=== PATIENT | male | born 1955 | race Two or more races ===

== ENCOUNTER 2019-03-04 10:54 | Emergency (ER) | payer MEDICAID ==
[~2019-03-04] VITALS: Ht 182.9 cm; Wt 77.1 kg
--- NOTE | 2019-03-04 11:09 | NUR ---
ED Nurse Note: Pt came into the ER w/ complaints of headache x 4 days ago. Pt is rating the pain a 6/10. Non radiating. Pt went to Dr. Dixon's office and sent him here for a CT scan. Pt is A + O x4. Ambulatory. Skin warm to touch.
[2019-03-04 11:11] VITALS: BP 119/76
[2019-03-04] MEDS ORDERED: Ketorolac 30mg Inj IV ONE (11:30)
[2019-03-04] MEDS ORDERED: Gadavist 7.5mMol/7.5ml vial IV PRN (11:30)
--- NOTE | 2019-03-04 11:34 | Emergency Room Report ---
History of Present Illness General Chief Complaint: Headache Source: Patient Present Illness HPI Patient was referred from his primary physician's office across the street to have a CT scan of the head because of a headache. The headache has been present for 4 days. He feels it mainly in the left part of his neck radiating up into his head - rated 6/10. He also feels dizziness. There is no nausea or vomiting associated with that. He's been taking a baby aspirin every day since it happened. He does occasionally smoke cigarettes and also drinks alcohol on occasion. 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 The patient also complains about some numbness down his left leg. He feels this is related to lower back pain. No other blood thinners, oncologic problems, arm or leg weakness, change in vision. No HTN, DM. No fam h/o strokes. 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 Nursing Documentation: PMH: Agreed; PSxH: Agreed Nursing Documentation-PMH Past Medical History: No History, Except For Hx Hypertension: Yes Hx Gastrointestinal Problems: Yes - Gastric Ulcer Review of Systems All Other Systems: negative except mentioned in HPI Physical Exam Vital Signs Date Time Temp Pulse Resp B/P (MAP) Pulse Ox O2 Delivery O2 Flow Rate FiO2 03/04/19 11:02 97.9 78 21 104/71 98 Room Air Sp02 EP Interpretation: reviewed, normal General Appearance: well appearing, no apparent distress, GCS 15 Head: normocephalic, atraumatic Eyes: bilateral eye normal inspection, bilateral eye PERRL, bilateral eye EOMI ENT: moist mucus membranes, other - lifts L lip speaking more than R but smiles symmetrically Neck: supple, tender - L occipital area Respiratory: chest non-tender, lungs clear, normal breath sounds Cardiovascular #1: regular rate, rhythm Cardiovascular #2: 2+ radial (R) Gastrointestinal: normal inspection, normal bowel sounds, non tender, no mass, non-distended Genitourinary: no CVA tenderness Musculoskeletal: gait/station normal, normal range of motion, other - min lumbar tenderness Neurologic: alert, oriented x3, operations lieutenant III-XII nml as tested, motor strength/tone normal, DTRs symmetric, sensory intact, cerebellar normal, normal gait, speech normal, no Babinski Psychiatric: mood/affect normal Skin: normal inspection, warm/dry Medical Decision Making Diagnostic Impression: Primary Impression: Headache Qualified Codes: G44.89 - Other headache syndrome Additional Impressions: Posterior fossa infarcts Cerebral infarct Qualified Codes: 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 Differential includes tension, migraine, referred pain from neck, intracerebral pathology amongst others. Evaluation will be with EKG and labs. As our CT scanner is nonfunctional an MRI is ordered. The patient will receive Toradol 15 mg IV. EKG without injury. Labs unremarkable. MRI called with cerebellar/occipital lobe infarcts - emboli. Called [facility]. Accepted by Dr. Lott. (Consideration for d/c, but wants to work up as posterior circulation problem.) Aspirin given. Discussed findings with patient. Initially reluctant to be transferred then agreed. Laboratory Tests Test 03/04/19 11:35 White Blood Count 6.5 K/UL (4.8-10.8) Red Blood Count 4.53 M/UL (4.70-6.10) L Hemoglobin 14.5 G/DL (14.2-18.0) Hematocrit 42.0 % (42.0-52.0) Mean Corpuscular Volume 93 FL (80-99) Mean Corpuscular Hemoglobin 31.9 PG (27.0-31.0) H Mean Corpuscular Hemoglobin Concent 34.4 G/DL (32.0-36.0) Red Cell Distribution Width 10.9 % (11.6-14.8) L Platelet Count 280 K/UL (150-450) Mean Platelet Volume 6.0 FL (6.5-10.1) L Neutrophils (%) (Auto) 66.4 % (45.0-75.0) Lymphocytes (%) (Auto) 21.3 % (20.0-45.0) Monocytes (%) (Auto) 9.3 % (1.0-10.0) Eosinophils (%) (Auto) 2.3 % (0.0-3.0) Basophils (%) (Auto) 0.7 % (0.0-2.0) Prothrombin Time 10.6 SEC (9.30-11.50) Prothrombin Time INR 1.0 (0.9-1.1) PTT 25 SEC (23-33) Sodium Level 138 MMOL/L (136-145) Potassium Level 3.8 MMOL/L (3.5-5.1) Chloride Level 103 MMOL/L (98-107) Carbon Dioxide Level 26 MMOL/L (21-32) Anion Gap 10 mmol/L (5-15) Blood Urea Nitrogen 12 mg/dL (7-18) Creatinine 0.8 MG/DL (0.55-1.30) Estimate Glomerular Filtration Rate > 60 mL/min (>60) Glucose Level 88 MG/DL (74-106) Calcium Level 9.2 MG/DL (8.5-10.1) Total Bilirubin 0.6 MG/DL (0.2-1.0) Aspartate Amino Transferase (AST) 22 U/L (15-37) Alanine Aminotransferase (ALT) 32 U/L (12-78) Alkaline Phosphatase 70 U/L (46-116) Total Creatine Kinase 107 U/L (26-308) Troponin I 0.000 ng/mL (0.000-0.056) Total Protein 7.5 G/DL (6.4-8.2) Albumin 3.7 G/DL (3.4-5.0) Globulin 3.8 g/dL Albumin/Globulin Ratio 1.0 (1.0-2.7) Serum Alcohol < 3 mg/dL EKG Diagnostic Results Rate: normal Rhythm: NSR ST Segments: no acute changes Rhythm Strip Diag. Results EP Interpretation: yes Rhythm: NSR, no PVC's, no ectopy CT/MRI/US Diagnostic Results CT/MRI/US Diagnostic Results : Imaging Test Ordered: MRI Impression Impression: Multiple acute infarcts in the left cerebellar hemisphere, bilateral occipital lobes, bilateral posterior parietal lobes. This is consistent with multiple emboli in the posterior circulation Negative for acute intracranial bleed, mass effect, or contrast enhancing lesion Last Vital Signs Date Time Temp Pulse Resp B/P (MAP) Pulse Ox O2 Delivery O2 Flow Rate FiO2 03/04/19 14:51 98.0 78 20 121/69 98 Room Air Status: improved Disposition: XFER SHT-TRM HOSP Condition: Serious - stable for transfer Gab Amaro MD Mar 04, 2019 11:34
[2019-03-04 11:50] LABS: BASOPHILS % (AUTO) 0.7 % (0.0-2.0); EOSINOPHILS % (AUTO) 2.3 % (0.0-3.0); HEMOGLOBIN 14.5 G/DL (14.2-18.0); LYMPHOCYTES % (AUTO) 21.3 % (20.0-45.0); MEAN CORPUSCULAR VOLUME 93 FL (80-99); MONOCYTES % (AUTO) 9.3 % (1.0-10.0); NEUTROPHILS % (AUTO) 66.4 % (45.0-75.0); PLATELET COUNT 280 K/UL (150-450); RED BLOOD COUNT 4.53 M/UL (4.70-6.10); RED CELL DISTRIBUTION WIDTH 10.9 % (11.6-14.8); WHITE BLOOD COUNT 6.5 K/UL (4.8-10.8)
--- NOTE | 2019-03-04 11:54 | NUR ---
ED Nurse Note: Pt went to MRI.
[2019-03-04 12:02] LABS: ANION GAP 10 mmol/L (5-15); BLOOD UREA NITROGEN 12 mg/dL (7-18); CALCIUM 9.2 MG/DL (8.5-10.1); CARBON DIOXIDE 26 MMOL/L (21-32); CHLORIDE 103 MMOL/L (98-107); CREATININE 0.8 MG/DL (0.55-1.30); POTASSIUM 3.8 MMOL/L (3.5-5.1); SODIUM 138 MMOL/L (136-145)
[2019-03-04 12:06] LABS: ALANINE AMINOTRANSFERASE 32 U/L (12-78); ALBUMIN 3.7 G/DL (3.4-5.0); ALKALINE PHOSPHATASE 70 U/L (46-116); ASPARTATE AMINO TRANSFERASE 22 U/L (15-37); BILIRUBIN,TOTAL 0.6 MG/DL (0.2-1.0); CREATINE KINASE 107 U/L (26-308)
--- NOTE | 2019-03-04 13:03 | NUR ---
ED Nurse Note: Pt back from MRI.
[2019-03-04 13:36] VITALS: BP 114/74
--- NOTE | 2019-03-04 14:06 | Diagnostic Imaging Report ---
Indication: Headache and dizziness Technique: sagittal T1 fast spin echo, axial T1 and T2 FLAIR PROPELLER, axial T2 FS PROPELLER, T2* GRE, axial diffusion weighted images, post contrast axial and coronal T1 FLAIR PROPELLER images. ADC and exponential ADC maps generated Comparison: none Findings: . Multiple foci of restricted diffusion are seen in the periphery of the left cerebellar hemisphere. Foci of restricted diffusion are seen in the left occipital lobe and a few in the right occipital lobe. Scattered punctate foci of restricted diffusion are also seen in the posterior parietal lobes bilaterally. The larger of these demonstrate associated areas of increased T2 signal. No unusual contrast enhancement is demonstrated. No acute hemorrhage or edema. No mass effect nor midline shift. Normal-sized ventricles and extra axial CSF spaces. The vascular flow voids are preserved. There are small polyps or mucous retention cyst in the bilateral maxillary sinuses. The orbits are unremarkable. Impression: Multiple acute infarcts in the left cerebellar hemisphere, bilateral occipital lobes, bilateral posterior parietal lobes. This is consistent with multiple emboli in the posterior circulation Negative for acute intracranial bleed, mass effect, or contrast enhancing lesion Critical value findings phoned to Dr. Amaro in the emergency room at approximately 1310 on 03/04/2019
[2019-03-04 14:51] VITALS: BP 121/69
--- NOTE | 2019-03-04 14:51 | NUR ---
ED Nurse Note: Gave telephone report to ROBB Lindo from [facility] and [facility]. Pt left Er w/ all belongings. No acute distress noted.
--- NOTE | 2019-03-05 16:00 | Cardiology Report ---
APPROVED REPORT EKG Measurement Heart [id number] ID [id number] Normal sinus rhythm Normal ECG
== END 2019-03-04 14:52 | disposition short-term general hospital (02) ==
LOC: EMR 11:20
DX: G44.89 Other headache syndrome (principal); I63.442 Cerebral infarction due to embolism of left cerebellar artery; F17.210 Nicotine dependence, cigarettes, uncomplicated; I10 Essential (primary) hypertension; R20.0 Anesthesia of skin; M54.5 Low back pain
CPT/HCPCS: 36415; 70553; 80053; 80329; 82550; 84484; 85025; 85610; 85730; 93005; 96374; 99284; A9585; J1885

== ENCOUNTER 2021-01-12 10:04 | Emergency (ER) | payer MEDICARE, MEDICAID ==
[~2021-01-12] VITALS: Ht 182.9 cm; Wt 72.6 kg
[2021-01-12 10:23] VITALS: BP 101/60
--- NOTE | 2021-01-12 10:23 | NUR ---
came to er complaints vomiting last night this morning palpitation and not feeling good no chest pain or shortness of breath
[2021-01-12 10:36] VITALS: BP 104/64
[2021-01-12 11:22] LABS: HEMATOCRIT 31.2 % (42.0-52.0); HEMOGLOBIN 10.5 G/DL (14.2-18.0); MEAN CORPUSCULAR VOLUME 93 FL (80-99); PLATELET COUNT 313 K/UL (150-450); RED BLOOD COUNT 3.34 M/UL (4.70-6.10); RED CELL DISTRIBUTION WIDTH 11.3 % (11.6-14.8); WHITE BLOOD COUNT 9.1 K/UL (4.8-10.8)
[2021-01-12 11:38] VITALS: BP 113/63
[2021-01-12 11:40] LABS: ANION GAP 10 mmol/L (5-15); BLOOD UREA NITROGEN 28 mg/dL (7-18); CALCIUM 8.3 MG/DL (8.5-10.1); CARBON DIOXIDE 24 MMOL/L (21-32); CHLORIDE 101 MMOL/L (98-107); CREATININE 0.8 MG/DL (0.55-1.30); POTASSIUM 3.8 MMOL/L (3.5-5.1); SODIUM 135 MMOL/L (136-145)
--- NOTE | 2021-01-12 11:42 | Diagnostic Imaging Report ---
Indication: Chest pain Technique: XRAY Chest 1v Comparison: None Findings: Heart size and mediastinal contours are within normal limits for AP technique. There is no focal airspace consolidation, pneumothorax or pleural effusion. Osseous structures demonstrate no acute abnormality. Impression: No radiographic evidence of acute cardiopulmonary disease.
--- NOTE | 2021-01-12 11:44 | Emergency Room Report ---
History of Present Illness General Chief Complaint: Palpitations Source: Patient Present Illness HPI 65-year-old male presents for evaluation. States that he is feeling shaky and weak and heart is racing. States that his blood pressure is low today. States that yesterday he was having some diarrhea and vomiting. Denies chest pain or shortness of breath. Denies fevers or chills. No other aggravating relieving factors. 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 Patient History Past Medical History: HTN Past Surgical History: none Pertinent Family History: none Social History: Denies: smoking, alcohol use, drug use Immunizations: UTD Reviewed Nursing Documentation: PMH: Agreed; PSxH: Agreed Nursing Documentation-PMH Hx Hypertension: Yes Hx Gastrointestinal Problems: Yes - Gastric Ulcer Review of Systems All Other Systems: negative except mentioned in HPI Physical Exam Vital Signs Date Time Temp Pulse Resp B/P (MAP) Pulse Ox O2 Delivery O2 Flow Rate FiO2 01/12/21 10:17 97.9 118 18 101/60 (74) 98 Room Air Sp02 EP Interpretation: reviewed, normal General Appearance: no apparent distress, alert, GCS 15, non-toxic Head: normocephalic, atraumatic Eyes: bilateral eye normal inspection, bilateral eye PERRL ENT: hearing grossly normal, normal pharynx, no angioedema, normal voice Neck: full range of motion, supple/symm/no masses Respiratory: chest non-tender, lungs clear, normal breath sounds, speaking full sentences Cardiovascular #1: regular rate, rhythm, no edema Cardiovascular #2: 2+ carotid (R), 2+ carotid (L), 2+ radial (R), 2+ radial (L), 2+ dorsalis pedis (R), 2+ dorsalis pedis (L) Gastrointestinal: normal bowel sounds, non tender, soft, non-distended, no guarding, no rebound Rectal: deferred Genitourinary: normal inspection, no CVA tenderness Musculoskeletal: back normal, normal range of motion, gait/station normal, non- tender Neurologic: alert, motor strength/tone normal, oriented x3, sensory intact, responsive, speech normal Psychiatric: judgement/insight normal, memory normal, mood/affect normal, no suicidal/homicidal ideation Reflexes: 3+ bicep (R), 3+ bicep (L), 3+ tricep (R), 3+ tricep (L), 3+ knee (R), 3+ knee (L) Lymphatic: no adenopathy Medical Decision Making Diagnostic Impression: Primary Impression: Palpitations Additional Impression: Gastroenteritis ER Course Hospital Course 65-year-old male presents with vomiting diarrhea. Palpitations. BP low Differential diagnoses include: afib, Vtach, SVT, anxiety, dehydration Clinical course Patient placed on stretcher. After initial history and physical I ordered labs, EKG, chest x-ray, IVFs. labs reviewed- all electrolytes normal, troponins negative, no leukocytosis, hemoglobin/hematocrit stable EKGnormal sinus rhythm no acute ischemic changes interpreted by me Chest x-ray-no cardiomegaly, no rib fracture, no pneumothorax, no acute process Discussed findings with patient. BP improved. States he feels better. Discussed with PMD. Agree that patient can be discharged home. We will withhold hydrochlorothiazide for now. He will see PMD this week in office I. I feel this is a highly complex case requiring extensive working including EKG/Rhythm strip, Xray/CT/US, Blood/urine lab work, repeat exams while in ED, and administration of strong opiates/narcotics for pain control, admission to hospital or close patient follow up. Diagnosis - palpitations, gastroenteritis Stable and discharged to home. Instructed to followup with PMD. Return to ED if symptoms recur or worsen Laboratory Tests Test 01/12/21 10:30 White Blood Count 9.1 K/UL (4.8-10.8) Red Blood Count 3.34 M/UL (4.70-6.10) L Hemoglobin 10.5 G/DL (14.2-18.0) L Hematocrit 31.2 % (42.0-52.0) L Mean Corpuscular Volume 93 FL (80-99) Mean Corpuscular Hemoglobin 31.6 PG (27.0-31.0) H Mean Corpuscular Hemoglobin Concent 33.8 G/DL (32.0-36.0) Red Cell Distribution Width 11.3 % (11.6-14.8) L Platelet Count 313 K/UL (150-450) Mean Platelet Volume 6.2 FL (6.5-10.1) L Neutrophils (%) (Auto) % (45.0-75.0) Lymphocytes (%) (Auto) % (20.0-45.0) Monocytes (%) (Auto) % (1.0-10.0) Eosinophils (%) (Auto) % (0.0-3.0) Basophils (%) (Auto) % (0.0-2.0) Differential Total Cells Counted 100 Neutrophils % (Manual) 87 % (45-75) H Lymphocytes % (Manual) 9 % (20-45) L Monocytes % (Manual) 4 % (1-10) Eosinophils % (Manual) 0 % (0-3) Basophils % (Manual) 0 % (0-2) Band Neutrophils 0 % (0-8) Platelet Estimate Adequate Platelet Morphology Normal Hypochromasia 1+ Sodium Level 135 MMOL/L (136-145) L Potassium Level 3.8 MMOL/L (3.5-5.1) Chloride Level 101 MMOL/L (98-107) Carbon Dioxide Level 24 MMOL/L (21-32) Anion Gap 10 mmol/L (5-15) Blood Urea Nitrogen 28 mg/dL (7-18) H Creatinine 0.8 MG/DL (0.55-1.30) Estimat Glomerular Filtration Rate > 60 mL/min (>60) Glucose Level 136 MG/DL (74-106) H Calcium Level 8.3 MG/DL (8.5-10.1) L Total Bilirubin 0.3 MG/DL (0.2-1.0) Aspartate Amino Transf (AST/SGOT) 21 U/L (15-37) Alanine Aminotransferase (ALT/SGPT) 39 U/L (12-78) Alkaline Phosphatase 61 U/L (46-116) Troponin I 0.005 ng/mL (0.000-0.056) Pro-B-Type Natriuretic Peptide 40 pg/mL (0-125) Total Protein 5.9 G/DL (6.4-8.2) L Albumin 3.3 G/DL (3.4-5.0) L Globulin 2.6 g/dL Albumin/Globulin Ratio 1.3 (1.0-2.7) EKG Diagnostic Results Troponin ordered: Yes Rate: normal Rhythm: NSR ST Segments: no acute changes ASA given to the pt in ED: No Rhythm Strip Diag. Results EP Interpretation: yes Rhythm: NSR, no PVC's, no ectopy Chest X-Ray Diagnostic Results Chest X-Ray Diagnostic Results : Chest X-Ray Ordered: Yes # of Views/Limited/Complete: 1 View Indication: Other EP Interpretation: Yes Interpretation: no consolidation, no effusion, no pneumothorax, no acute cardiopulmonary disease Impression: No acute disease Electronically Signed by: Electronically signed by Bry Ramirez MD Last Vital Signs Date Time Temp Pulse Resp B/P (MAP) Pulse Ox O2 Delivery O2 Flow Rate FiO2 01/12/21 11:38 84 18 113/63 100 Room Air 01/12/21 10:23 97.9 Status: improved Disposition: HOME, SELF-CARE Condition: Stable Referrals: NON PHYSICIAN (PCP) Bry Ramirez MD Jan 12, 2021 11:44
[2021-01-12 11:50] LABS: ALANINE AMINOTRANSFERASE 39 U/L (12-78); ALBUMIN 3.3 G/DL (3.4-5.0); ALBUMIN/GLOBULIN RATIO 1.3 (1.0-2.7); ALKALINE PHOSPHATASE 61 U/L (46-116); ASPARTATE AMINO TRANSFERASE 21 U/L (15-37); BILIRUBIN,TOTAL 0.3 MG/DL (0.2-1.0)
--- NOTE | 2021-01-12 12:30 | NUR ---
ED Nurse Note: Pt cleared by health care Provider for discharge. DC instructions/prescription was given and explained to pt and verbalized understanding of teachings. All medical deviecs such as ID band removed. Pt is AAO x4, ambulatory and left with all personal belongings.
== END 2021-01-12 12:32 | disposition home or self-care (01) ==
LOC: EMR 10:48
DX: K52.9 Noninfective gastroenteritis and colitis, unspecified (principal); R00.2 Palpitations; I10 Essential (primary) hypertension
CPT/HCPCS: 36415; 71045; 80053; 83880; 84484; 85007; 85025; 93005; 96360; 99284